=== PATIENT | male | born 1955 | race Caucasian/White ===

== ENCOUNTER 2018-08-15 07:51 | Emergency (ER) | payer MEDICARE ==
--- NOTE | 2018-08-15 07:58 | ERPHSYRPT ---
- History of Present Illness Time Seen by Provider: 08/15/18 07:57 Historian: patient, family Exam Limitations: no limitations Physician History: 62 y/o white male presents with recurrent abd pain, constipation, distension and vomiting. pt states he does this approx once a week but not this bad. pt usually drinks prune juice and constipation relieves. didnt try prune juice. no bm in 3 to 4 days. having dry heaves. pt states he does not use anything otc because they dont work. pt states it has been a long time since his last colonoscopy Timing/Duration: day(s) (3 to 4 ) Quality: cramping Abdominal Pain Onset Location: generalized abdomen Severity of Pain-Max: moderate Severity of Pain-Current: moderate Associated Symptoms: loss of appetite, other (abd distension) Previous symptoms: same symptoms as today Allergies/Adverse Reactions: No Known Drug Allergies Allergy (Unverified 08/15/18 08:13) Home Medications: Insulin Glargine,Hum.rec.anlog [Lantus] 45 units DAILY 08/15/18 [History] Lisinopril 10 mg [Zestril 10 MG] 10 mg DAILY 08/15/18 [History] Metformin HCl 500 mg [Glucophage 500 MG] 500 ng BID 08/15/18 [History] Omeprazole Magnesium [Prilosec] 10 mg DAILY 08/15/18 [History] Pravastatin Sodium 20 ng DAILY 08/15/18 [History] - Review of Systems Constitutional: No Symptoms Eyes: No Symptoms Ears, Nose, & Throat: No Symptoms Respiratory: No Symptoms Cardiac: No Symptoms Abdominal/Gastrointestinal: Abdominal Pain, Constipation, Other (abdominal distension) Genitourinary Symptoms: No Symptoms Musculoskeletal: No Symptoms Skin: No Symptoms Neurological: No Symptoms Psychological: No Symptoms Endocrine: No Symptoms Hematologic/Lymphatic: No Symptoms Immunological/Allergic: No Symptoms All Other Systems: Reviewed and Negative - Past Medical History Neurological History: No Pertinent History ENT History: No Pertinent History Cardiac History: No Pertinent History Respiratory History: No Pertinent History Endocrine Medical History: No Pertinent History Musculoskeletal History: No Pertinent History GI Medical History: Other (chronic constipation) - Nursing Vital Signs Nursing Vital Signs: Initial Vital Signs Temperature 97.0 F 08/15/18 08:06 Pulse Rate 105 H 08/15/18 08:06 Respiratory Rate 18 08/15/18 08:06 Blood Pressure 142/97 08/15/18 08:06 O2 Sat by Pulse Oximetry 99 08/15/18 08:06 Pain Scale Pain Intensity 3 - Physical Exam General Appearance: mild distress, alert, anxiety Eye Exam: PERRL/EOMI Ears, Nose, Throat Exam: normal ENT inspection, moist mucous membranes Neck Exam: normal inspection, non-tender, supple, full range of motion Respiratory Exam: normal breath sounds, lungs clear, airway intact, No chest tenderness, No respiratory distress Cardiovascular Exam: tachycardia (mild) Gastrointestinal/Abdomen Exam: tenderness (mild diffuse), distention Rectal Exam: not done Back Exam: normal inspection, normal range of motion, No CVA tenderness, No vertebral tenderness Extremity Exam: normal inspection, normal range of motion, pelvis stable Neurologic Exam: alert, oriented x 3, cooperative, cleat blanker II-XII nml as tested Skin Exam: normal color, warm, dry Lymphatic Exam: No adenopathy SpO2 Interpretation: normal O2 Delivery: Room Air Ordered Tests: Active Orders 24 hr Category Date Time Status Enema STAT Care 08/15/18 08:30 Active Enema STAT Care 08/15/18 08:39 Active Medication Summary Discontinued Medications Generic Name Dose Route Start Last Admin Trade Name Freq PRN Reason Stop Dose Admin Magnesium Citrate 296 ml 08/15/18 10:56 08/15/18 11:05 Citroma 296 Ml PO 08/15/18 10:57 296 ml STAT ONE Administration Magnesium Citrate Confirm 08/15/18 11:03 Citroma 296 Ml Administered 08/15/18 11:04 Dose 296 ml .ROUTE .STK-MED ONE Ondansetron HCl 4 mg 08/15/18 08:30 08/15/18 08:47 Zofran Odt 4 Mg PO 08/15/18 08:31 4 mg STAT ONE Administration Ondansetron HCl Confirm 08/15/18 08:47 Zofran Odt 4 Mg Administered 08/15/18 08:48 Dose 4 mg .ROUTE .STK-MED ONE - Progress Progress: improved, re-examined Progress Note: 08/15/18 11:07 pt had a bm and needs to go again in response to fleets enema. will give pt oral mag citrate prior to discharge. Counseled pt/family regarding: diagnosis, need for follow-up - Departure Time of Disposition: 11:08 Departure Disposition: Home Clinical Impression: Constipation Condition: Stable Critical Care Time: No Additional Instructions: repeat fleets enema rectally at home hours after you drank magnesium citrate rapidly. drink plenty of fluids. follow up with butt presser for colonoscopy and bowel regimen to help avoid constipation. be active. may use milk of magnesia, magnesium citrate, fleets enema and rectal suppositories as directed on over the counter packaging.
[2018-08-15 08:14] VITALS: BP 142/97
[2018-08-15] MEDS ORDERED: ZOFRAN ODT 4 MG PO ONE (08:30)
[2018-08-15] MEDS ORDERED: ZOFRAN ODT 4 MG ONE (08:47)
[2018-08-15] MEDS ORDERED: CITROMA 296 ML PO ONE (10:56)
[2018-08-15 11:02] VITALS: PULSE 80; O2SAT 98
[2018-08-15] MEDS ORDERED: CITROMA 296 ML ONE (11:03)
== END 2018-08-15 11:25 | disposition home or self-care (01) ==
LOC: ED 07:51
DX: K59.00 Constipation, unspecified (principal); Z79.899 Other long term (current) drug therapy
CPT/HCPCS: 99283; Q0162; A9270-GY

== ENCOUNTER 2019-08-05 17:27 | Emergency (ER) | payer OTHER ==
[2019-08-05] MEDS ORDERED: DUONEB 0.5-3 MG/3 ml Neb IH ONE ×2 (17:40→17:44)
[2019-08-05] MEDS ORDERED: Zofran 4 MG/2 ML VIAL IV ONE (17:42)
[2019-08-05] MEDS ORDERED: Sodium Chloride 0.9% 1000 ML 1,000 ML IV STA (17:42)
[2019-08-05] MEDS ORDERED: Sodium Bicarbonate 50 MEQ/50 ML VIAL IV ONE (17:45)
[2019-08-05] MEDS ORDERED: Zofran 4 MG/2 ML VIAL ONE (17:53)
[2019-08-05] MEDS ORDERED: Sodium Chloride 0.9% 1000 ML 1,000 ML ONE ×2 (17:53→18:53)
[2019-08-05] MEDS ORDERED: SODIUM BICARBONATE 50 MEQ/50 ML ABBOJECT IV ONE (17:54)
[2019-08-05 17:59] LABS: Hematocrit 39.9 % (42-50); Mean Cell Volume 86.6 fl (78-100); Mean Corpuscular Hemoglobin 30.4 pg (26-32); Mean Corpuscular Hgb Concent. 35.1 g/dl (32-36); Mean Platelet Volume 9.6 fl (7.5-11.0); Platelet Count 333 K/mm3 (150-450); Red Blood Count 4.61 M/mm3 (4.1-5.6); Red Cell Distribution Width 13.1 % (11.5-14.0); White Blood Count 12.6 K/mm3 (4.0-10.5)
[2019-08-05 18:04] LABS: A-aADO2 497; ABG HEMOGLOBIN 14.2; ABG POTASSIUM 5.7 (3.5-5.1); ARTERIAL BLD GAS O2 SATURATION 99.8 % (95-100); ARTERIAL BLOOD GAS BASE EXCESS -22.8 (-2.0-2.0); ARTERIAL BLOOD GAS FIO2 100 %; ARTERIAL BLOOD GAS PO2 202 mmHg (75-100); CARBOXYHEMOGLOBIN 0.9 % THgb (0.0-6.9); HCO3- 3.7 (22-28); HGB O2 SAT 97.8 g/dF (94-100); Methhemoglobin 1.1 % (1.4-1.5); paO2 pAO1 0.29
[2019-08-05 18:05] LABS: ABG SITE RIGHT RADIAL; ALLEN TEST OK? YES; ARTERIAL BLOOD GAS PCO2 11 mmHg (35-45); ARTERIAL BLOOD GAS pH 7.14 (7.35-7.45)
[2019-08-05] MEDS ORDERED: solu-MEDROL 125 MG IV ONE (18:07)
--- NOTE | 2019-08-05 18:11 | ERPHSYRPT ---
- History of Present Illness Time Seen by Provider: 08/05/19 17:36 Source: patient, EMS Exam Limitations: clinical condition Patient Subjective Stated Complaint: pt here for increase sob for last 3 days, elevated BS this morning, he states he took extra insulin today. Triage Nursing Assessment: arrived per ambulance, alert, in resp distress, barrel chest, skin warm, pink, mottled to lower legs, no edema noted, moves all ext well, mucus membranes dry Physician History: 62 years old male with history ofpoorly controlled diabetes mellitus, on insulin , hypertension, hyperlipidemia, COPD presented in the ER but 2 days history of progressively worsening shortness of breath and cough productive of clear to yellow sputum of moderate amount. Initially he was short of breath with activity but since morning short of breath even at rest pain. On EMS arrival at home his oxygen saturation was in the 60s, was oout of breath. He is placed on nonrebreather and on presentation in the ER his oxygen saturation is around upper 80s. Patient also reports blood sugar reading high at home for the last couple of days and has taken 8 units of regular insulin prior to arrival. Denies any fever or chills. He had mild nausea earlier with dry heaving. Denies any diarrhea,, abdominal pain or chest pain. No palpitations. Does have history of the case in the past. Patient is in respiratory distress and history is limited. Timing/Duration: day(s) (2) Activities at Onset: rest Severity of Dyspnea-Max: severe Severity of Dyspnea-Current: severe Modifying Factors: Improves With: activity, coughing Associated Symptoms: constant, cough, wheezing, productive cough, No chest pain/ discomfort, No heaviness, No leg swelling Allergies/Adverse Reactions: No Known Drug Allergies Allergy (Unverified 08/15/18 08:13) Home Medications: Insulin Glargine,Hum.rec.anlog [Lantus] 45 units DAILY 08/15/18 [History] Lisinopril 10 mg [Zestril 10 MG] 10 mg DAILY 08/15/18 [History] Metformin HCl 500 mg [Glucophage 500 MG] 500 ng BID 08/15/18 [History] Omeprazole Magnesium [Prilosec] 10 mg DAILY 08/15/18 [History] Pravastatin Sodium 20 ng DAILY 08/15/18 [History] Hx Tetanus, Diphtheria Vaccination/Date Given: (unk) Hx Influenza Vaccination/Date Given: No Hx Pneumococcal Vaccination/Date Given: No Immunizations Up to Date: (unk) - Review of Systems Constitutional: Fatigue, No Fever, No Chills Ears, Nose, & Throat: No Symptoms Respiratory: Cough, Dyspnea, Wheezing Cardiac: No Symptoms Abdominal/Gastrointestinal: Nausea Genitourinary Symptoms: No Symptoms Musculoskeletal: Myalgias Skin: No Symptoms Neurological: No Symptoms Psychological: No Symptoms Endocrine: No Symptoms Hematologic/Lymphatic: No Symptoms Immunological/Allergic: No Symptoms - Past Medical History Pertinent Past Medical History: Yes Neurological History: No Pertinent History ENT History: No Pertinent History Cardiac History: No Pertinent History Respiratory History: No Pertinent History, COPD Endocrine Medical History: No Pertinent History, Diabetes Type I Musculoskeletal History: No Pertinent History GI Medical History: Other Male Reproductive Disorders: Other Other Medical History: ED - Past Surgical History Past Surgical History: Yes Other Surgical History: nose surgery, back - Social History Smoking Status: Never smoker Exposure to second hand smoke: No Drug Use: none Patient Lives Alone: No - Nursing Vital Signs Nursing Vital Signs: Initial Vital Signs Temperature 97.2 F 08/05/19 17:28 Pulse Rate 117 H 08/05/19 17:28 Respiratory Rate 60 H 08/05/19 17:28 Blood Pressure 136/91 08/05/19 17:28 O2 Sat by Pulse Oximetry 100 08/05/19 17:28 Pain Scale Pain Intensity 4 - Physical Exam General Appearance: severe distress, alert Eye Exam: eyes nml inspection Ears, Nose, Throat Exam: hearing grossly normal, pharyngeal erythema Neck Exam: normal inspection, non-tender, supple, full range of motion Respiratory Exam: respiratory distress, diminished breath sounds, accessory muscle use, wheezing Cardiovascular/Chest Exam: normal heart sounds, regular rate/rhythm Abdominal/Gastrointestinal Exam: soft, normal bowel sounds, No tenderness, No distention, No mass Extremity Exam: non-tender, normal range of motion, normal inspection Neurologic Exam: alert, oriented x 3, cooperative Skin Exam: normal color, warm, dry SpO2 Interpretation: normal SpO2: 100 O2 Delivery: BiPap/CPAP - Course Nursing assessment & vital signs reviewed: Yes EKG Interpreted by Me: RATE ([id number]), NORMAL AXIS, NORMAL INTERVALS, Q-wave, Non- specific ST Changes Ordered Tests: Active Orders 24 hr Category Date Time Status Accucheck STAT Care 08/05/19 19:11 Active Airline Hostess STAT Care 08/05/19 19:11 Active EKG-ER Only STAT Care 08/05/19 17:42 Active IV Insertion STAT Care 08/05/19 17:42 Active IV Insertion-2nd Peripheral STAT Care 08/05/19 18:04 Active NPO (ED) STAT Care 08/05/19 17:42 Active ABDOMEN AND PELVIS W/0 CONTRAS [CT] Stat Exams 08/05/19 19:49 Taken CHEST 1 VIEW (PORTABLE) Stat Exams 08/05/19 17:42 Taken CHEST WITHOUT CONTRAST [CT] Stat Exams 08/05/19 19:10 Taken ABG [ARTERIAL BLOOD GASES] Stat Lab 08/05/19 17:30 Completed AMYLASE Stat Lab 08/05/19 17:46 Completed CBC W DIFF Stat Lab 08/05/19 17:46 Completed CMP Stat Lab 08/05/19 17:46 Completed Glucose,Critical Care Stat Lab 08/05/19 20:43 Ordered LIPASE Stat Lab 08/05/19 17:46 Completed Lactic Acid Stat Lab 08/05/19 17:30 Completed Lactic Acid Stat Lab 08/05/19 20:20 Received Manual Differential NC Stat Lab 08/05/19 17:46 Completed PROTIME WITH INR Stat Lab 08/05/19 17:46 Completed TROPONIN Q3H Lab 08/05/19 17:46 Completed TROPONIN Q3H Lab 08/05/19 20:47 Received TROPONIN Q3H Lab 08/05/19 23:45 Ordered TROPONIN Q3H Lab 08/06/19 02:45 Ordered TROPONIN Q3H Lab 08/06/19 05:45 Ordered UA W/RFX UR CULTURE Stat Lab 08/05/19 20:11 Completed BiPap/CPAP STAT RT 08/05/19 18:08 Active Respiratory Therapy Assessment DAILY RT 08/05/19 18:08 Active Medication Summary Generic Name Dose Route Start Last Admin Trade Name Freq PRN Reason Stop Dose Admin Sodium Chloride 1,000 mls @ 150 mls/hr 08/05/19 19:00 08/05/19 18:54 Sodium Chloride 0.9% 1000 Ml IV 09/04/19 18:59 150 mls/hr .[id number] CHRISTIE Administration Insulin Human Regular 100 101 mls @ 7.07 mls/hr 08/05/19 19:15 08/05/19 19:52 units/ Sodium Chloride IV 09/04/19 19:14 7 units/hr .[id number] CHRISTIE 7.07 mls/hr Administration 7 UNITS/HR Oseltamivir Phosphate 30 mg 08/06/19 20:06 08/05/19 20:30 Oseltamivir Phosphate 30 Mg Cap PO 08/06/19 20:07 30 mg DAILY ONE Administration Discontinued Medications Generic Name Dose Route Start Last Admin Trade Name Freq PRN Reason Stop Dose Admin Albuterol/Ipratropium Confirm 08/05/19 17:40 Duoneb 0.5-3 Mg/3 Ml Neb Administered 08/05/19 17:41 Dose 3 ml IH .STK-MED ONE Albuterol/Ipratropium 3 ml 08/05/19 17:44 08/05/19 17:43 Duoneb 0.5-3 Mg/3 Ml Neb IH 08/05/19 17:45 3 ml STAT ONE Administration Aspirin Confirm 08/05/19 18:52 Baby Aspirin 81 Mg Chew Administered 08/05/19 18:53 Dose 324 mg .ROUTE .STK-MED ONE Sodium Chloride 1,000 mls @ 999 mls/hr 08/05/19 17:42 08/05/19 20:10 Sodium Chloride 0.9% 1000 Ml IV 08/05/19 18:42 Infused .Q1H1M STA Infusion Sodium Chloride Confirm 08/05/19 17:53 Sodium Chloride 0.9% 1000 Ml Administered 08/05/19 17:54 Dose 1,000 mls @ ud .ROUTE .STK-MED ONE Sodium Chloride Confirm 08/05/19 19:21 Sodium Chloride 0.9% 100 Ml Ivpb Administered 08/05/19 19:22 Dose 100 mls @ ud IV .STK-MED ONE Piperacillin Sod/Tazobactam Sod 3.375 gm in 100 mls @ 200 mls/hr 08/05/19 20: 50 08/05/19 20:59 Zosyn 3.375gm/100 Ml D5w IV 08/05/19 21:19 200 mls/hr STAT STA 200 mls/hr Administration Piperacillin Sod/Tazobactam Sod Confirm 08/05/19 20:52 Zosyn 3.375gm/100 Ml D5w Administered 01/30/20 20:53 Dose 3.375 gm in 100 mls @ ud IV .STK-MED ONE Insulin Human Regular Confirm 08/05/19 19:20 Novolin R Administered 08/05/19 19:21 Dose 1 unit .ROUTE .STK-MED ONE Methylprednisolone Sodium Succinate 125 mg 08/05/19 18:07 08/05/19 18:52 Solu-Medrol 125 Mg IV 08/05/19 18:08 Not Given STAT ONE Ondansetron HCl 4 mg 08/05/19 17:42 08/05/19 17:55 Zofran 4 Mg/2 Ml Vial IV 08/05/19 17:43 4 mg STAT ONE Administration Ondansetron HCl Confirm 08/05/19 17:53 Zofran 4 Mg/2 Ml Vial Administered 08/05/19 17:54 Dose 4 mg .ROUTE .STK-MED ONE Oseltamivir Phosphate Confirm 08/05/19 20:27 Oseltamivir Phosphate 30 Mg Cap Administered 08/05/19 20:28 Dose 30 mg PO .STK-MED ONE Sodium Bicarbonate 50 meq 08/05/19 17:45 08/05/19 17:55 Sodium Bicarbonate 50 Meq/50 Ml Vial IV 08/05/19 17:46 50 meq NOW ONE Administration Sodium Bicarbonate Confirm 08/05/19 17:54 Sodium Bicarbonate 50 Meq/50 Ml Abboject Administered 08/05/19 17:55 Dose 50 meq IV .STK-MED ONE Lab/Rad Data: Laboratory Result Diagrams 08/05/19 17:46 08/05/19 17:46 Laboratory Results 08/05/19 08/05/19 08/05/19 Range/Units 20:11 18:24 17:46 WBC (4.0-10.5) K/mm3 RBC (4.1-5.6) M/mm3 Hgb (12.5-18.0) gm/dl Hct (42-50) % MCV (78-100) fl MCH (26-32) pg MCHC (32-36) g/dl RDW (11.5-14.0) % Plt Count (150-450) K/mm3 MPV (7.5-11.0) fl Segmented Neutrophils (36.-66.) % Band Neutrophils (0.0-2.0) % Lymphocytes (Manual) (24-44) % Monocytes (Manual) (0.0-12.0) % Platelet Estimate (NORMAL) RBC Morphology PT (8.83-12.87) SECONDS INR (0.8-3.0) Puncture Site pCO2 (35-45) mmHg pO2 (75-100) mmHg Base Excess (-2.0-2.0) O2 Saturation (94-100) g/dF ABG pH (7.35-7.45) ABG HCO3 (22-28) ABG O2 Sat (Measured) (95-100) % Koby Test A-a Gradient a/A Ratio Hemoglobin Carboxyhemoglobin (0.0-6.9) % THgb Methemoglobin (1.4-1.5) % Potassium (3.5-5.1) Temperature C POC O2 Flow Rate % Sodium (137-145) mmol/L Chloride (98-107) mmol/L Carbon Dioxide (22-30) mmol/L BUN (9-20) mg/dL Creatinine (0.66-1.25) mg/dL Estimated GFR ML/MIN Glucose (74-106) mg/dL Lactic Acid (0.4-2.0) Calcium (8.4-10.2) mg/dL Total Bilirubin (0.2-1.3) mg/dL AST (17-59) U/L ALT (0-50) U/L Alkaline Phosphatase (38-126) U/L Troponin I 0.150 H* (0.000-0.034) ng/mL Serum Total Protein (6.3-8.2) g/dL Albumin (3.5-5.0) g/dL Amylase (30-110) U/L Lipase (23-300) U/L Urine Color STRAW (YELLOW) Urine Appearance CLEAR (CLEAR) Urine pH 5.0 (5-6) Ur Specific [place] 1.016 (1.005-1.025) Urine Protein NEGATIVE (Negative) Urine Ketones MODERATE (NEGATIVE) Urine Blood MODERATE (0-5) Dylan/ul Urine Nitrite NEGATIVE (NEGATIVE) Urine Bilirubin NEGATIVE (NEGATIVE) Urine Urobilinogen NEGATIVE (0-1) mg/dL Ur Leukocyte Esterase NEGATIVE (NEGATIVE) Urine WBC (Auto) 3-5 (0-5) /HPF Urine RBC (Auto) NONE (0-2) /HPF U Epithel Cells (Auto) NONE (FEW) /HPF Urine Bacteria (Auto) NONE (NEGATIVE) /HPF Urine Mucus (Auto) SLIGHT (NEGATIVE) /HPF Urine Culture Reflexed NO (NO) Urine Glucose >=500 (NEGATIVE) mg/dL Influenza Type A Ag NEGATIVE (NEGATIVE) Influenza Type B Ag POSITIVE (NEGATIVE) RSV (PCR) NEGATIVE (Negative) 08/05/19 08/05/19 08/05/19 Range/Units 17:46 17:46 17:46 WBC 12.6 H (4.0-10.5) K/mm3 RBC 4.61 (4.1-5.6) M/mm3 Hgb 14.0 (12.5-18.0) gm/dl Hct 39.9 L (42-50) % MCV 86.6 (78-100) fl MCH 30.4 (26-32) pg MCHC 35.1 (32-36) g/dl RDW 13.1 (11.5-14.0) % Plt Count 333 (150-450) K/mm3 MPV 9.6 (7.5-11.0) fl Segmented Neutrophils 83 H (36.-66.) % Band Neutrophils 11 H (0.0-2.0) % Lymphocytes (Manual) 4 L (24-44) % Monocytes (Manual) 2 (0.0-12.0) % Platelet Estimate NORMAL (NORMAL) RBC Morphology NORMAL PT 11.3 (8.83-12.87) SECONDS INR 1.00 (0.8-3.0) Puncture Site pCO2 (35-45) mmHg pO2 (75-100) mmHg Base Excess (-2.0-2.0) O2 Saturation (94-100) g/dF ABG pH (7.35-7.45) ABG HCO3 (22-28) ABG O2 Sat (Measured) (95-100) % Koby Test A-a Gradient a/A Ratio Hemoglobin Carboxyhemoglobin (0.0-6.9) % THgb Methemoglobin (1.4-1.5) % Potassium 5.7 H (3.5-5.1) Temperature C POC O2 Flow Rate % Sodium 121 L (137-145) mmol/L Chloride 84 L (98-107) mmol/L Carbon Dioxide < 5 L* (22-30) mmol/L BUN 54 H (9-20) mg/dL Creatinine 1.60 H (0.66-1.25) mg/dL Estimated GFR 46.6 ML/MIN Glucose 810 H* (74-106) mg/dL Lactic Acid (0.4-2.0) Calcium 9.6 (8.4-10.2) mg/dL Total Bilirubin 0.60 (0.2-1.3) mg/dL AST 25 (17-59) U/L ALT 16 (0-50) U/L Alkaline Phosphatase 152 H (38-126) U/L Troponin I (0.000-0.034) ng/mL Serum Total Protein 7.1 (6.3-8.2) g/dL Albumin 4.1 (3.5-5.0) g/dL Amylase 784 H (30-110) U/L Lipase 3469 H (23-300) U/L Urine Color (YELLOW) Urine Appearance (CLEAR) Urine pH (5-6) Ur Specific [place] (1.005-1.025) Urine Protein (Negative) Urine Ketones (NEGATIVE) Urine Blood (0-5) Dylan/ul Urine Nitrite (NEGATIVE) Urine Bilirubin (NEGATIVE) Urine Urobilinogen (0-1) mg/dL Ur Leukocyte Esterase (NEGATIVE) Urine WBC (Auto) (0-5) /HPF Urine RBC (Auto) (0-2) /HPF U Epithel Cells (Auto) (FEW) /HPF Urine Bacteria (Auto) (NEGATIVE) /HPF Urine Mucus (Auto) (NEGATIVE) /HPF Urine Culture Reflexed (NO) Urine Glucose (NEGATIVE) mg/dL Influenza Type A Ag (NEGATIVE) Influenza Type B Ag (NEGATIVE) RSV (PCR) (Negative) 08/05/19 08/05/19 Range/Units 17:30 17:30 WBC (4.0-10.5) K/mm3 RBC (4.1-5.6) M/mm3 Hgb (12.5-18.0) gm/dl Hct (42-50) % MCV (78-100) fl MCH (26-32) pg MCHC (32-36) g/dl RDW (11.5-14.0) % Plt Count (150-450) K/mm3 MPV (7.5-11.0) fl Segmented Neutrophils (36.-66.) % Band Neutrophils (0.0-2.0) % Lymphocytes (Manual) (24-44) % Monocytes (Manual) (0.0-12.0) % Platelet Estimate (NORMAL) RBC Morphology PT (8.83-12.87) SECONDS INR (0.8-3.0) Puncture Site RIGHT RADIAL pCO2 11 L* (35-45) mmHg pO2 202 H* (75-100) mmHg Base Excess -22.8 L (-2.0-2.0) O2 Saturation 97.8 (94-100) g/dF ABG pH 7.14 L* (7.35-7.45) ABG HCO3 3.7 L* (22-28) ABG O2 Sat (Measured) 99.8 (95-100) % Koby Test YES A-a Gradient 497 a/A Ratio 0.29 Hemoglobin 14.2 Carboxyhemoglobin 0.9 (0.0-6.9) % THgb Methemoglobin 1.1 L (1.4-1.5) % Potassium 5.7 H (3.5-5.1) Temperature 37.0 C POC O2 Flow Rate 100 % Sodium (137-145) mmol/L Chloride (98-107) mmol/L Carbon Dioxide (22-30) mmol/L BUN (9-20) mg/dL Creatinine (0.66-1.25) mg/dL Estimated GFR ML/MIN Glucose (74-106) mg/dL Lactic Acid 2.4 H (0.4-2.0) Calcium (8.4-10.2) mg/dL Total Bilirubin (0.2-1.3) mg/dL AST (17-59) U/L ALT (0-50) U/L Alkaline Phosphatase (38-126) U/L Troponin I (0.000-0.034) ng/mL Serum Total Protein (6.3-8.2) g/dL Albumin (3.5-5.0) g/dL Amylase (30-110) U/L Lipase (23-300) U/L Urine Color (YELLOW) Urine Appearance (CLEAR) Urine pH (5-6) Ur Specific [place] (1.005-1.025) Urine Protein (Negative) Urine Ketones (NEGATIVE) Urine Blood (0-5) Dylan/ul Urine Nitrite (NEGATIVE) Urine Bilirubin (NEGATIVE) Urine Urobilinogen (0-1) mg/dL Ur Leukocyte Esterase (NEGATIVE) Urine WBC (Auto) (0-5) /HPF Urine RBC (Auto) (0-2) /HPF U Epithel Cells (Auto) (FEW) /HPF Urine Bacteria (Auto) (NEGATIVE) /HPF Urine Mucus (Auto) (NEGATIVE) /HPF Urine Culture Reflexed (NO) Urine Glucose (NEGATIVE) mg/dL Influenza Type A Ag (NEGATIVE) Influenza Type B Ag (NEGATIVE) RSV (PCR) (Negative) - Progress Progress: improved, re-examined Air Movement: fair Progress Note: patient was in respiratory distress on presentation. He is given tonight and placed on BiPAP. chest x-ray did not show any focal consolidations. He is on about once a sheet this is number aPatient has taken 80 units of insulin prior to arrival and still fingerstick was reading high. Workup showed blood sugar in the 800s, acute kidney injury and pseudohyponatremia of 121 but corrected around 134. Given 2 fluid boluses and started on insulin drip without any bolus for DKA.is bicarbonate less than 5 and pH of 7.1, given the ampule of bicarbonate. He also has tolerated lipase and CT is done which showed distended gallbladder but no obvious stones along with some fecal stasis. I would give him a dose of antibiotic as well. He also has positive influenza and is started on Tamiflu per renal adjustment. on reevaluation his breathing is much improved on BiPAP. Patient is more awake and alert. Patient report he was not taking any insulin until 2 days ago when his blood sugar started to go high and he restarted. ddiscussed with Dr. Hill, reviewed workup, recommended transfer to higher level of care. Plan discussed with patient and he wants to go [facility]. 08/05/19 20:41 08/05/19 21:10 d/w reviewed patient presentation and workup, recommended d/w GI before accepting patient to make sure that he doesnt not need ERCP emergently. d /w Dr.Richardson LOPEZ and patient is accepted for transfer. Blood Culture(s) Obtained: Yes Antibiotics given: No Counseled pt/family regarding: lab results, diagnosis, rad results - Departure Departure Disposition: Transfer Clinical Impression: Influenza, NSTEMI (non-ST elevated myocardial infarction) DKA, type 2 Qualifiers: Diabetes mellitus [facility] insulin use: unspecified [facility] insulin use status Diabetes mellitus complication detail: without coma Qualified Code(s): E11.10 - Type 2 diabetes mellitus with ketoacidosis without coma Pancreatitis Qualifiers: Chronicity: acute Pancreatitis type: unspecified pancreatitis type Acute pancreatitis complication: unspecified Qualified Code(s): K85.90 - Acute pancreatitis without necrosis or infection, unspecified Renal failure Qualifiers: Renal failure chronicity: acute Acute renal failure type: unspecified Qualified Code(s): N17.9 - Acute kidney failure, unspecified Sepsis Qualifiers: Sepsis type: sepsis due to unspecified organism Sepsis acute organ dysfunction status: with acute organ dysfunction Severe sepsis acute organ dysfunction type : acute respiratory failure Acute respiratory failure type: with hypoxia Severe sepsis shock status: without septic shock Qualified Code(s): A41.9 - Sepsis, unspecified organism Condition: Critical Critical Care Time: Yes Critical Care Time(excluding separately billable procedures): Critical 75-104 mins (ais a) Referrals: MARCIANO ALY MD [Primary Care Provider] -
[2019-08-05 18:13] LABS: ALBUMIN 4.1 g/dL (3.5-5.0); ALKALINE PHOSPHATASE 152 U/L (38-126); AMYLASE 784 U/L (30-110); BLOOD UREA NITROGEN 54 mg/dL (9-20); CHLORIDE 84 mmol/L (98-107); Calcium 9.6 mg/dL (8.4-10.2); PROTIME 11.3 SECONDS (8.83-12.87); Potassium 5.7 mmol/L (3.5-5.1); SGOT/AST 25 U/L (17-59); SGPT/ALT 16 U/L (0-50); SODIUM 121 mmol/L (137-145); Total Protein 7.1 g/dL (6.3-8.2)
[2019-08-05 18:26] LABS: Carbon Dioxide < 5 mmol/L (22-30); Glucose 810 mg/dL (74-106); LIPASE 3469 U/L (23-300)
[2019-08-05] MEDS ORDERED: BABY ASPIRIN 81 MG CHEW ONE (18:52)
[2019-08-05] MEDS ORDERED: Sodium Chloride 0.9% 1000 ML 1,000 ML IV SCH (19:00)
[2019-08-05 19:03] LABS: INFLUENZA A NEGATIVE (NEGATIVE)
[2019-08-05 19:05] LABS: INFLUENZA B POSITIVE (NEGATIVE); RESPIRATORY SYNCTIAL VIRUS NEGATIVE (Negative)
[2019-08-05 19:09] LABS: BAND 11 % (0.0-2.0); Lymphocytes 4 % (24-44); Monocyte 2 % (0.0-12.0); Neutrophils 83 % (36.-66.); Platelet Estimate NORMAL (NORMAL); Total Cells Counted 100
[2019-08-05] MEDS ORDERED: NOVOLIN R INSULIN (FOR DRIPS)** 100 UNITS in Sodium Chloride 0.9% 100 ML IVPB 100 ML IV SCH (19:15)
[2019-08-05] MEDS ORDERED: NovoLIN R ONE (19:20)
[2019-08-05] MEDS ORDERED: Sodium Chloride 0.9% 100 ML IVPB 100 ML IV ONE (19:21)
[2019-08-05 20:17] LABS: Appearance CLEAR (CLEAR); Bilirubin NEGATIVE (NEGATIVE); Blood MODERATE Ery/ul (0-5); Glucose >=500 mg/dL (NEGATIVE); Ketones MODERATE (NEGATIVE); Leukocyte Esterase NEGATIVE (NEGATIVE); Mucus SLIGHT /HPF (NEGATIVE); Nitrite NEGATIVE (NEGATIVE); Protein,Urine Dip NEGATIVE (Negative); Specific Gravity 1.016 (1.005-1.025); Urobilinogen NEGATIVE mg/dL (0-1)
[2019-08-05] MEDS ORDERED: OSELTAMIVIR PHOSPHATE 30 MG CAP PO ONE (20:27)
[2019-08-05] MEDS ORDERED: Zosyn 3.375GM/100 Ml D5W 3.375 GM/100 ML IVPB IV STA (20:50)
[2019-08-05] MEDS ORDERED: Zosyn 3.375GM/100 Ml D5W 3.375 GM/100 ML IVPB IV ONE (20:52)
[2019-08-05 22:19] VITALS: O2SAT 99
[2019-08-05 23:33] VITALS: BP 124/61; PULSE 103
--- NOTE | 2019-08-06 08:38 | XRAY ---
Indication: Short of breath. Pneumonia. Comparison: None Portable chest hyperinflated and clear. Heart is not enlarged. Bony thorax intact with osteopenia and degenerative changes. Impression: Nonacute hyperinflated chest.
--- NOTE | 2019-08-06 08:40 | XRAY ---
Indication: Short of breath. COPD. Pneumonia. Multiple contiguous axial images obtained through the chest without contrast as ordered. Comparison: None Images through the mid to lower lung slightly degraded by respiration artifact. Lungs are hyperinflated with mild bilateral dependent atelectasis. No suspicious pulmonary mass, infiltrate, or effusion. Heart is not enlarged. Aorta is normal in course and caliber. No pathologic mediastinal lymphadenopathy. Bony thorax demonstrates osteopenia, remote T12 compression fracture with 50% height loss, and T6 segment compression fracture with 50% height loss of uncertain chronicity. 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 CT abdomen reported separately. Impression: 1. Respiration artifact. 2. Hyperinflated lungs. No acute cardiopulmonary abnormalities on this noncontrast exam. 3. 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
--- NOTE | 2019-08-06 08:45 | XRAY ---
Indication: Pancreatitis. Multiple contiguous axial images obtained through the abdomen and pelvis without contrast as ordered. Comparison: None Images through the majority of the abdomen are degraded by respiration artifact. Noncontrasted stomach and bowel loops appear nonobstructed. There is moderate diffuse scattered colonic fecal debris throughout with large rectal impaction. No free fluid/air. Urinary bladder is massively distended either outlet obstruction versus neurogenic bladder. Seminal vesicle calcifications bilaterally. Gallbladder moderately distended without gallstones. Remaining liver, gallbladder, pancreas, spleen, adrenal glands, kidneys, ureters, and bladder appear unremarkable. Mild scattered aortoiliac calcifications without AAA. Osseous structures demonstrates osteopenia and mild degenerative changes of both hips. Impression: 1. Respiration artifact. 2. Diffuse fecal stasis with rectal impaction. 3. Massively distended urinary bladder. Rule out outlet obstruction versus neurogenic bladder. 4. Distended gallbladder without gallstones. Gallbladder sonogram may yield further information if clinically warranted.
[2019-08-06] MEDS ORDERED: OSELTAMIVIR PHOSPHATE 30 MG CAP PO ONE (20:06)
== END 2019-08-05 23:00 | disposition short-term general hospital (02) ==
LOC: ED 17:27
DX: J11.1 Influenza due to unidentified influenza virus with other respiratory manifestations (principal); I21.4 Non-ST elevation (NSTEMI) myocardial infarction; E11.10 Type 2 diabetes mellitus with ketoacidosis without coma; Z79.4 Long term (current) use of insulin; K85.90 Acute pancreatitis without necrosis or infection, unspecified; N17.9 Acute kidney failure, unspecified; A41.9 Sepsis, unspecified organism; I10 Essential (primary) hypertension; M79.10 Myalgia, unspecified site; J44.9 Chronic obstructive pulmonary disease, unspecified; Z79.899 Other long term (current) drug therapy
CPT/HCPCS: 36000; 36415; 36600; 71045; 71250; 74176; 80053; 81001; 82150; 82375; 82803; 82947; 82962; 83605; 83690; 84484; 85025; 85610; 87631; 93005; 93041; 94002; 94640; 96360; 96365; 96367; 96374; 96375; 99285; 99291; 99292; J1815; J2405; J2543; A9270-GY